=== PATIENT | male | born 1975 | race Caucasian/White ===

== ENCOUNTER 2022-04-05 15:53 | Emergency (ER) | payer OTHER ==
[2022-04-05] MEDS ORDERED: ACETAMINOPHEN 325 MG TABLET (FP) PO ONE (16:12)
[2022-04-05] MEDS ORDERED: ACETAMINOPHEN 325 MG TABLET (FP) ONE (16:15)
[2022-04-05 16:25] VITALS: BP 112/78; PULSE 95; RESP 16; BMI 21.9
[2022-04-05 17:30] VITALS: TEMP 100
== END 2022-04-05 17:50 | disposition home or self-care (01) ==
LOC: FER 15:53
DX: M79.10 Myalgia, unspecified site (principal); R50.9 Fever, unspecified
CPT/HCPCS: 0241U-QW; 99283-25